=== PATIENT | male | born 1955 | race Caucasian/White ===

== ENCOUNTER 2017-06-01 11:19 | Emergency (ER) | payer MEDICAID, OTHER ==
[~2017-06-01] VITALS: Ht 172.7 cm; Wt 84.1 kg
[~2017-06-01 11:19] MED LIST: CARI250T PO; LISI40TA4 PO; PANT40EC PO; TEMA30CA23 PO
[2017-06-01 11:26] VITALS: BP 150/95
--- NOTE | 2017-06-01 13:52 | NUR ---
Pt ambulated to bed 7.
--- NOTE | 2017-06-01 14:36 | NUR ---
Patient being evaluated by Dr. Ford at bedside.
[2017-06-01] MEDS ORDERED: KETOROLAC 60 MG/2 ML VIAL IM ONE (14:45)
[2017-06-01] MEDS ORDERED: oxyCODONE/APAP 5/325 MG 1 TAB TAB PO ONE (14:45)
--- NOTE | 2017-06-01 14:52 | NUR ---
PT BIB SELF WITH C/O LOWER BACK PAIN X 5 DAYS; PATIENT DENIES ANY RECENT FALLS OR TRUAMA; PATIENT ALSO STATES R LEG NUMBNESS; PATIENT ANY ABD PAIN, incontinence, OR INABLILITY TO MOVE EXTREMITIES; PT IS A&OX4, PERRLA, RR ARE EVEN AND UNLABORED, PT DENIES ANY CP OR SOB; ABD IS SOFT AND NON TENDER; PT DENIES ANY N/V/D; MD WALLIS BY BEDSIDE TO EXAMINE PT; NAD; AWAITING FURTHER ORDERS; PT POSITION TO COMFORT; ALL NEEDS MET AT THIS TIME; WILL CONTINUE TO MONITOR
[2017-06-01 15:01] VITALS: BP 143/88
--- NOTE | 2017-06-01 15:03 | NUR ---
Patient refused medication. MD aware. Patient states his is waiting for him so he wants to go now. Patient discharged with v/s stable. Written and verbal after care instructions given and explained. Patient alert, oriented and verbalized understanding of instructions. Ambulatory with steady gait. All questions addressed prior to discharge. ID band removed. Patient advised to follow up with PMD. Rx of SOMA AND NORCO 10 given. Patient educated on indication of medication including possible reaction and side effects. Opportunity to ask questions provided and answered.
== END 2017-06-01 15:03 | disposition home or self-care (01) ==
LOC: MED 11:19
DX: M54.5 Low back pain (principal); K21.9 Gastro-esophageal reflux disease without esophagitis; I10 Essential (primary) hypertension; Z79.899 Other long term (current) drug therapy
CPT/HCPCS: 99283